=== PATIENT | male | born 1970 | race Caucasian/White ===

== ENCOUNTER → 2018-12-28 | Emergency (ER) | payer OTHER ==
[~2018-12-28] VITALS: Ht 182.9 cm; Wt 94.4 kg
[2018-12-28 12:16] VITALS: BP 133/87
--- NOTE | 2018-12-28 12:51 | NUR ---
PT CALLED BACK TO [facility], CURRENTLY IN [place], CONFIRMED WITH TECH
== END ==
LOC: ED 13:34
DX: S86.111A Strain of other muscle(s) and tendon(s) of posterior muscle group at lower leg level, right leg, initial encounter (principal); Z86.718 Personal history of other venous thrombosis and embolism; X58.XXXA Exposure to other specified factors, initial encounter; Y93.89 Activity, other specified; Y92.89 Other specified places as the place of occurrence of the external cause; Y99.8 Other external cause status
CPT/HCPCS: 99284

== ENCOUNTER 2020-08-24 13:13 | Emergency (ER) | payer OTHER ==
[~2020-08-24] VITALS: Ht 182.9 cm; Wt 89.3 kg
--- NOTE | 2020-08-24 14:11 | NUR ---
PT SITTING ON GURNEY, FULLY DRESSED. STATES U/S WAS DONE "AND THEY TOLD ME TO GET DRESSED". SWELLING TO LT INNER THIGH
--- NOTE | 2020-08-24 14:15 | NUR ---
PT NOW IN EXAM GOWN. SLIGHT SWELLING TO LT INNER THIGH; NO DISCOLORATION. DENIES PAIN, NUMBNESS/TINGLING TO LLE Addendum: 08/24/20 at 1415 by BERNIE SWELLING NOTED YESTERDAY AFTER NOON. PT TAKES XARELTO - LAST DOSE: LAST NOC.
[2020-08-24] MEDS ORDERED: RIVA20TA PO (14:20)
[2020-08-24 14:21] VITALS: BP 118/75
--- NOTE | 2020-08-24 14:24 | NUR ---
DR HER AT
== END 2020-08-24 14:32 | disposition home or self-care (01) ==
LOC: ED 14:20
DX: S76.212A Strain of adductor muscle, fascia and tendon of left thigh, initial encounter (principal); Z86.718 Personal history of other venous thrombosis and embolism; X58.XXXA Exposure to other specified factors, initial encounter; Y93.89 Activity, other specified; Y92.89 Other specified places as the place of occurrence of the external cause; Y99.8 Other external cause status
CPT/HCPCS: 99284

== ENCOUNTER 2020-11-21 15:40 | Emergency (ER) | payer OTHER ==
[~2020-11-21] VITALS: Ht 182.9 cm; Wt 89.3 kg
[~2020-11-21 15:40] MED LIST: RIVA20TA PO
[2020-11-21 15:52] VITALS: BP 136/86
--- NOTE | 2020-11-21 16:12 | NUR ---
PT IS A 50/M COMPLAINING OF PAIN AND SWELLING TO UPPER BUTTOCK. PROVIDER AT BEDSIDE. APPEARS TO BE AN ABSCESS. WILL SET UP FOR I& D. PT RESTING COMFORTABLY PRONE ON THE GUERNEY. CALL LIGHT WITHIN REACH. CONTINUOUS SP02 AND CYCLING VITALS IN PLACE.
[2020-11-21] MEDS ORDERED: LIDOCAINE-MPF 1%, 5ML ONE (16:16)
[2020-11-21] MEDS ORDERED: LIDOCAINE-MPF 1%, 5ML INFIL ONE (16:30)
--- NOTE | 2020-11-21 16:41 | NUR ---
Patient/Caregiver given discharge instructions and they have confirmed that they understand the instructions. Patient ambulatory with steady gait.
== END 2020-11-21 16:44 | disposition home or self-care (01) ==
LOC: ED 16:22
DX: L05.01 Pilonidal cyst with abscess (principal); Z86.718 Personal history of other venous thrombosis and embolism
CPT/HCPCS: 10080; 99283

== ENCOUNTER 2020-11-24 16:58 | Emergency (ER) | payer OTHER ==
[~2020-11-24] VITALS: Ht 182.9 cm; Wt 90.2 kg
[2020-11-24 17:15] VITALS: BP 128/77
== END 2020-11-24 17:59 ==
LOC: ED 17:51
DX: L02.31 Cutaneous abscess of buttock (principal)
CPT/HCPCS: 99281